=== PATIENT | male | born 1940 | race Caucasian/White ===

== ENCOUNTER 2019-03-18 11:05 | Day surgery (SDC) | payer MEDICARE ==
[~2019-03-18 11:05] MED LIST: Dexamethasone 20 MG/5 ML VIAL ONE; Ondansetron PF 4 MG/2 ML Vial ONE; PROPOFOL 200 MG/20 ML VIAL ONE; Succinylcholine Chloride 20 MG/ML 10 ml SYRINGE FS ONE
--- NOTE | 2019-03-19 13:25 | OP ---
DATE OF PROCEDURE: 03/18/2019 PREPROCEDURE DIAGNOSES: Dysphagia and bolus obstruction. The patient came to the office this morning, was seen by one of the providers there, and sent over today's day for endoscopy. POSTPROCEDURE DIAGNOSES: 1. Hiatal hernia sliding type. 2. Stricture/Schatzki ring, dilated to 18 mm. 3. Duodenitis with gastritis, biopsied. 4. Food bolus had migrated to the stomach at the time of endoscopy, and there was quite a bit of inflammation at the GE junction, but not so much to preclude dilatation. The food bolus was noted in the stomach. PROCEDURE PERFORMED: EGD with biopsy and EGD with dilatation to 18 mm. PROCEDURE IN DETAIL: The patient was informed of the risks, benefits, and possible complications of endoscopy including perforation, reaction to medication, aspiration. Informed consent was obtained. The patient was brought to the endoscopy suite where he was sedated in a standard fashion. Once he was comfortable, bite-block was placed inside the orifice. The endoscope was advanced to the esophagus, stomach, and 2nd and 3rd portions of the duodenum and was removed. There was good visualization of mucosa. There were no masses, lesions, or AV malformations noted. The hiatal hernia was noted in the distal esophagus. There was esophagitis with a stricture and there was food bolus in the stomach which seemed to have migrated through. Once we gotten sedated, this area was dilated because of his history of intermittent dysphagia and food bolus obstruction in the past. Gastric biopsies were obtained. The duodenum was normal. The stomach was otherwise normal on forward and retroflexed views. The scope was removed. The patient tolerated the procedure well. There were no complications. RECOMMENDATIONS: Daily PPI therapy. Follow up in the office in 3 weeks. Job ID: [id number]
== END 2019-03-18 15:37 | disposition home or self-care (01) ==
LOC: SDC 11:05
PROVIDERS: ATTEND Internal Medicine Gastroenterology
PROC: 0DB78ZX Excision of Stomach, Pylorus, Via Natural or Artificial Opening Endoscopic, Diagnostic (ICD-10-PCS; principal; 2019-03-18)
PROC: 0D758ZZ Dilation of Esophagus, Via Natural or Artificial Opening Endoscopic (ICD-10-PCS; 2019-03-18)
DX: K22.2 Esophageal obstruction (principal); K31.89 Other diseases of stomach and duodenum; K29.80 Duodenitis without bleeding; K20.9 Esophagitis, unspecified; K44.9 Diaphragmatic hernia without obstruction or gangrene; F17.200 Nicotine dependence, unspecified, uncomplicated; Z79.899 Other long term (current) drug therapy
CPT/HCPCS: 88305; 88312; J1100; J2405; J2704

== ENCOUNTER 2020-04-12 15:50 | Inpatient (IN) | payer MEDICARE ==
[~2020-04-12 15:50] MED LIST changes: +Glycopyrrolate 0.2 MG/ML 5 ML SYRINGE ONE; +Ketorolac Tromethamine 30 MG/ML VIAL ONE; +PHENYLEPHRINE-NS 100 MCG/ML 10 ML SYRINGE ONE; +Rocuronium Bromide 10 MG/ML (10ML VIAL) ONE; -Succinylcholine Chloride 20 MG/ML 10 ml SYRINGE FS ONE
[2020-04-12] MEDS ORDERED: Ondansetron PF 4 MG/2 ML Vial ONE (16:10)
[2020-04-12] MEDS ORDERED: Morphine 4 MG/ML VIAL ONE ×3 (16:10→16:49)
--- NOTE | 2020-04-12 16:57 | RAD ---
PORTABLE CHEST: History: Patient slipped and fell in parking lot. FINDINGS: Heart size is within normal limits. The aorta is mildly tortuous. The lungs are clear of any infiltra katt. No rib fractures. Some minimal blunting to the left costophrenic angle could represent a small e ffusions versus some pleural thickening. IMPRESSION: Blunting to the left costophrenic angle. I suspect this is chronic in nature. Fairly similar in app danny to a 2012 study. No active intrathoracic disease. POS: LIGIA
--- NOTE | 2020-04-12 17:01 | RAD ---
LEFT HIP TWO VIEWS: History: Patient slipped and fell in parking lot. FINDINGS: An intertrochanteric fracture with marked coxa vara deformity is noted. No other findings. IMPRESSION: Intertrochanteric fracture of the left hip. POS: LIGIA
--- NOTE | 2020-04-12 17:02 | RAD ---
AP PELVIS: History: Patient slipped and fell with left hip pain. FINDINGS: Pelvic ring is intact without evidence of fracture. Sclerotic bony changes over the right femoral hea d are incidentally noted. An intertrochanteric fracture of the left hip is present. IMPRESSION: Intertrochanteric fracture of the left hip. POS: LIGIA
[2020-04-12 17:14] LABS: #Basophils 0.1 thou/uL (0.0-0.2); #Eosinphils 0.1 thou/uL (0.0-0.7); #Lymphocytes 1.2 thou/uL (1.20-3.40); #Monocytes 0.7 thou/uL (0.11-0.59); #Neutrophils 4.7 thou/uL (1.40-6.50); %Basophils 0.8 % (0.0-1.0); %Eosinophils 1.4 % (0.0-10.0); %Lymphocytes 17.5 % (21.0-51.0); %Monocytes 10.5 % (0.0-10.0); %Neutrophils 69.8 % (42.0-75.0); Hemoglobin 15.7 g/dL (14.0-18.0); Mean Corpuscular HGB CONC 33.3 g/dL (32.0-36.0); Mean Corpuscular Hemoglobin 34.7 pg (27.0-31.0); Mean Platelet Volume 6.6 fL (7.4-10.4); Platelet Count 218 thou/uL (130-400); Red Blood Cell (RBC) Count 4.52 mill/uL (4.70-6.10); White Blood Cell (WBC) Count 6.7 thou/uL (4.8-10.8)
[2020-04-12 17:20] LABS: PTT 26.3 sec (22.9-36.1); Prothrombin Time 13.3 sec (12.0-14.7)
[2020-04-12 17:36] LABS: ALT (SGPT) 11 U/L (8-55); AST (SGOT) 15 U/L (5-34); Albumin 3.6 g/dL (3.4-4.8); Alkaline Phosphatase 84 U/L (40-110); Anion Gap 15 mmol/L (10-20); BUN (Urea Nitrogen) 11 mg/dL (8.4-25.7); Bilirubin, Total 0.6 mg/dL (0.2-1.2); Calc. Creatinine Clearance 0 mL/min (70-130); Calcium 8.5 mg/dL (7.8-10.44); Carbon Dioxide 25 mmol/L (23-31); Chloride 105 mmol/L (98-107); Globulin 3.4 g/dL (2.4-3.5); Glucose 96 mg/dL (83-110); Potassium 4.8 mmol/L (3.5-5.1); Sodium 140 mmol/L (136-145)
--- NOTE | 2020-04-12 17:49 | HP ---
REQUESTING PHYSICIAN: Dr. Glass. ATTENDING SURGEON: Dr. Obrien. CONSULTATIONS: Orthopedics, Dr. Page. HISTORY OF PRESENT ILLNESS: The patient is a 80-year-old man who was brought to the emergency department by [facility] after having a ground level ground level fall in a store. He felt that his hip dislocated when in fact he had suffered a displaced femoral neck fracture which time we were asked to evaluate the patient for admission and obtain Orthopedic consultation. This was a witnessed fall and the patient did not hit his head or have altered level of consciousness. The patient denied any syncopal type symptoms only that he lost his footing and slipped. The patient's spouse is at bedside. She confirms this. The patient denies blood thinners. He has been n.p.o. since this morning and we have contacted Orthopedics and they plan to take him to the operating room today. ALLERGIES: NONE. CURRENT MEDICATIONS: Trazodone. PAST MEDICAL HISTORY: Multiple skin cancers. PAST SURGICAL HISTORY: Cholecystectomy, ventral hernia repair. SOCIAL HISTORY: The patient lives at home with family. He drinks daily. Smokes at least one pack of cigarettes per day. Denies drug use. REVIEW OF SYSTEMS: A 10-point review of systems is negative as otherwise stated. PHYSICAL EXAMINATION: VITAL SIGNS: Blood pressure 130/79, heart rate 77, respirations 20, oxygen saturation 99% on room air, temperature is 97.8. GENERAL: The patient is resting comfortably in bed. He is awake, alert, conversant, appropriate. Cami Coma Scale is 15. HEENT: Head is normocephalic and atraumatic. Eyes, extraocular movements intact. PERRLA bilaterally. Ears are atraumatic without discharge. Nose is atraumatic without discharge. Oropharynx is clear. NECK: Nontender. Trachea is midline with no JVD. CHEST: Clear to auscultation with scant wheezings and occasional rhonchi. ABDOMEN: Soft, flat, nontender with active bowel sounds. PELVIS: Stable with tenderness to palpation to the left hip consistent with his fracture. The left lower extremity is held slightly flexed and internally rotated. EXTREMITIES: Neurovascularly intact x4. BACK: By report is atraumatic and nontender. LABORATORY FINDINGS: White blood cell count 6.7, hemoglobin 15.7, hematocrit 47.1, platelets 218. INR 1.0. Chemistries are pending. RADIOGRAPHIC REPORTS: AP chest x-ray shows no active intrathoracic disease. AP pelvis shows intertrochanteric fracture of the left hip. Views of the left hip again demonstrated an intertrochanteric fracture of the left hip. ASSESSMENT: 1. Status post ground level fall. 2. Left intertrochanteric femur fracture. 3. Acute pain secondary to above. PLAN: Plan will be to admit the patient to the surgical floor, though he is likely to go to the preop holding area once his COVID test comes back. We will do pulmonary toilet, gastritis and mechanical VTE prophylaxis. Postoperatively, we will begin working with Physical and Occupational Therapy and discuss placement at that time. The evaluation, examination, laboratory, and radiographic findings will be discussed with Dr. Obrien following this dictation and Dr. Page has been aware of this patient and has scheduled the patient for surgery today. Job ID: [id number]
[2020-04-12] MEDS ORDERED: Ondansetron HCl/PF 4 MG/2 ML Vial IVP PRN ×2 (17:55→20:03)
[2020-04-12] MEDS ORDERED: Promethazine HCl 25 MG/ML VIAL IM PRN (17:55)
[2020-04-12] MEDS ORDERED: Meperidine HCl/PF 25 MG/ML VIAL SLOW IVP PRN (17:55)
[2020-04-12] MEDS ORDERED: Promethazine HCl 25 MG/ML VIAL SLOW IVP PRN (17:55)
[2020-04-12] MEDS ORDERED: Fentanyl 100 MCG/2 ML VIAL ONE ×3 (18:13→20:39)
[2020-04-12 18:27] LABS: SARS-CoV-2 NAA Rapid Test Not Detected (NotDetected)
--- NOTE | 2020-04-12 20:32 | CON ---
DATE OF CONSULTATION: 04/12/2020 CHIEF COMPLAINT: Left hip pain. HISTORY OF PRESENT ILLNESS: Mr. Hill is a 80-year-old male who was at [facility] when he slipped in the snow. He fell on the concrete. He fractured his left hip. He was unable to ambulate. EMS took him to the emergency department where he was found to have a displaced intertrochanteric femur fracture. He has been given pain medication. He is alert. His pain is controlled currently. He has been n.p.o. since early this morning. He has been in good condition lately with no recent illness. He has not been in the hospital recently. He ambulates with no assistance at baseline. PAST MEDICAL HISTORY: The patient denies active medical problems. PAST SURGICAL HISTORY: Cholecystectomy, hernia repair, left elbow surgery, and skin cancer removal. PSYCHIATRIC HISTORY: Negative. SOCIAL HISTORY: The patient drinks alcohol daily. Denies tobacco or drug use. ALLERGIES: NO KNOWN DRUG ALLERGIES. MEDICATIONS: Trazodone. FAMILY MEDICAL HISTORY: Noncontributory. REVIEW OF SYSTEMS: Positive for left hip pain with any movement. Otherwise, negative 10-point review of systems. IMAGES: X-rays of the left hip demonstrated displaced intertrochanteric femur fracture with shortening and varus alignment. PHYSICAL EXAMINATION: VITAL SIGNS: Stable. The patient is afebrile, 98% on room air. HEENT: Normocephalic, atraumatic. RESPIRATORY: Breathing comfortably. ABDOMEN: Soft, nontender, nondistended. MUSCULOSKELETAL: The patient's left lower extremity is shortened and internally rotated. He has deformity of the leg and swelling. He has a palpable dorsalis pedis pulse. He is able to flex and extend the toes and ankle. Upper extremities are atraumatic. IMPRESSION: Left intertrochanteric femur fracture in a 80-year-old male. PLAN: At this point, I think the patient would benefit from operative intervention. We will plan for intramedullary nail fixation of the left proximal femur to restore anatomical alignment and promote early mobilization. Goal of surgery will also be to provide pain control. The patient will go to the operating room [facility]. He has a rapid COVID test pending. He has had appropriate labs and workup. He will have antibiotics on-call to the operating room and DVT prophylaxis. Job ID: [id number]
--- NOTE | 2020-04-12 20:34 | OP ---
DATE OF PROCEDURE: 04/12/2020 PROCEDURE PERFORMED: Left femur intramedullary nail. PREOPERATIVE DIAGNOSIS: Left femur intertrochanteric fracture. POSTOPERATIVE DIAGNOSIS: Left femur intertrochanteric fracture. COMPLICATIONS: None. ESTIMATED BLOOD LOSS: 100 mL. IMPLANTS: Synthes short trochanteric nail, size 11 mm with helical blade. INDICATIONS: Mr. Hill is a 80-year-old male who has fallen and fractured his left proximal femur. He has been indicated for intramedullary nail fixation to restore anatomic alignment and promote healing. Risks have been reviewed in detail. He elected to proceed with the operation. DESCRIPTION OF PROCEDURE: Mr. Hill was identified in the preoperative holding area. His correct extremity was marked. He was carried to the operating room. He was positioned supine. General anesthesia was induced. A multidisciplinary time-out was performed. The left lower extremity was prepped and draped in sterile fashion. We began the procedure with evaluation of the left hip under intraoperative x-ray. We identified the fracture and reduced the fracture. Once we had an anatomic reduction, we made a small incision proximal to the greater trochanter. We dissected down through the subcutaneous tissues to the tip of the trochanter. We inserted a guidewire. At this point, we proceeded to pass the guidewire from proximal to distal. We overdrilled the guidewire. We then inserted our 11 mm short trochanteric nail. This was seated in the femur. We placed a second guidewire in the centered position of the femoral head using the guide. We overdrilled this. We then impacted our helical blade and seated this appropriately. It was locked in a dynamic position. Next, we placed our distal Crosslock screw through the appropriate instrumentation. The final x-rays were taken. We thoroughly irrigated all wounds and closed wounds in layers. A sterile dressing was applied. The patient was taken to the recovery room at this point in good condition. Job ID: [id number]
--- NOTE | 2020-04-12 20:41 | RAD ---
RADIOGRAPH LEFT HIP THREE VIEWS: DATE: 04-12-2020 TIME: 7:48 p.m. History: 80-year-old male with acute, traumatic left proximal femoral fracture. Comparison: 04-12-2020 4:26 p.m. FINDINGS: The sharp varus angulation of the intertrochanteric and/or basicervical fracture, has been reduced an d is now fixated with a gamma nail. Femoral stem reaches the proximal femoral shaft. Single distal st abilization screw at the proximal femoral shaft. Significant improvement in alignment. IMPRESSION: Status post gamma nail fixation of basicervical or intertrochanteric left proximal femoral fracture. POS: JIN
[2020-04-12] MEDS ORDERED: hydrALAZINE 20 MG/ML VIAL SLOW IVP PRN (21:15)
[2020-04-12] MEDS ORDERED: Morphine 2 MG/ML VIAL SLOW IVP PRN (21:15)
[2020-04-12] MEDS ORDERED: Ondansetron ODT 4 MG TAB PO PRN (21:15)
[2020-04-12] MEDS ORDERED: Dextrose 5% in Water 1,000 ML IV PRN (21:15)
[2020-04-12] MEDS ORDERED: Dextrose 50% Abboject 50 ML SYRINGE SLOW IVP PRN (21:15)
[2020-04-12] MEDS ORDERED: Ondansetron PF 4 MG/2 ML Vial IVP PRN (21:15)
[2020-04-12] MEDS: Acetaminophen 325 MG TAB PO SCH (22:08)
[2020-04-12] MEDS: Ibuprofen 600 MG TAB PO SCH (22:09)
[2020-04-12] MEDS: Sodium Chloride 0.9% 1,000 ML IV SCH (22:09)
[2020-04-12] MEDS: Famotidine 20 MG TAB PO SCH (22:09)
[2020-04-12 22:20] VITALS: BMI 23.6
[2020-04-13] MEDS: CEFAZOLIN 2 GM in Premix Bag 1 BAG IVPB SCH ×2 (01:10→09:01)
[2020-04-13] MEDS: traMADol HCl 50 MG TAB PO PRN ×2 (05:00→23:45)
[2020-04-13] MEDS: Acetaminophen 325 MG TAB PO SCH ×4 (05:00→23:44)
[2020-04-13] MEDS: Ibuprofen 600 MG TAB PO SCH ×3 (05:01→20:50)
[2020-04-13 05:35] LABS: #Lymphocytes 0.7 thou/uL (1.20-3.40); #Monocytes 0.7 thou/uL (0.11-0.59); #Neutrophils 7.4 thou/uL (1.40-6.50); %Basophils 0.1 % (0.0-1.0); %Eosinophils 0.1 % (0.0-10.0); %Lymphocytes 8.2 % (21.0-51.0); %Monocytes 8.3 % (0.0-10.0); %Neutrophils 83.3 % (42.0-75.0); Hemoglobin 13.1 g/dL (14.0-18.0); Mean Corpuscular HGB CONC 33.5 g/dL (32.0-36.0); Mean Platelet Volume 6.9 fL (7.4-10.4); Platelet Count 241 thou/uL (130-400); RBC Distribution Width 12.7 % (11.5-14.5); Red Blood Cell (RBC) Count 3.75 mill/uL (4.70-6.10); White Blood Cell (WBC) Count 8.9 thou/uL (4.8-10.8)
[2020-04-13 05:46] LABS: Anion Gap 12 mmol/L (10-20); BUN (Urea Nitrogen) 12 mg/dL (8.4-25.7); Calc. Creatinine Clearance 62 mL/min (70-130); Calcium 8.2 mg/dL (7.8-10.44); Carbon Dioxide 28 mmol/L (23-31); Chloride 102 mmol/L (98-107); Glucose 132 mg/dL (83-110); Potassium 5.5 mmol/L (3.5-5.1); Sodium 136 mmol/L (136-145)
[2020-04-13] MEDS: Sodium Chloride 0.9% 1,000 ML IV SCH (06:21)
[2020-04-13] MEDS: Famotidine 20 MG TAB PO SCH ×2 (07:57→20:50)
[2020-04-13] MEDS: Thiamine 100 MG TAB PO SCH (09:38)
[2020-04-13] MEDS: Multivit, Therapeutic 1 TAB PO SCH (09:38)
[2020-04-13] MEDS: Folic Acid 1 MG TAB PO SCH (09:38)
[2020-04-13] MEDS: Oxazepam 10 MG CAP PO SCH ×2 (10:45→17:19)
--- NOTE | 2020-04-13 13:53 | PRG ---
DATE OF SERVICE: 04/13/2020 SUBJECTIVE: The patient is hospital day #1, status post left femur ORIF due to femoral neck fracture sustained after a ground level fall. The patient states he is doing well. Pain is controlled. He was sitting up in bed, eating his breakfast when seen on rounds with Dr. Austin this morning. PHYSICAL EXAMINATION: VITAL SIGNS: Blood pressure 90/55, heart rate is 85, respiratory rate 18, oxygen saturation 93% on room air, temperature 98.1 Fahrenheit. GENERAL: The patient is resting comfortably in bed. Eating breakfast. No complaints at this time. GCS is 15. HEENT: Unremarkable. RESPIRATIONS: Nonlabored. ABDOMEN: Nondistended. LUNGS: Mild end-expiratory wheezing bilaterally. EXTREMITIES: Neurovascularly intact x4. LABORATORY DATA: Sodium 136, potassium 5.5. ASSESSMENT: 1. Status post ground level fall. 2. Left intertrochanteric femur fracture, one day status post open reduction and internal fixation. 3. Alcohol use disorder. PLAN: Continue to monitor patient's pain level to achieve adequate pain control so that the patient may be able to work with PT/OT. Pending post-acute screen for placement. Stopped IV fluids today. The patient is tolerating a diet well. Added Serax today due to patient's history of alcohol use daily. Encouraged patient to continue using incentive spirometer. Job ID: [id number] [facility]
[2020-04-13] MEDS: Senokot S 8.6-50 MG TAB PO SCH (20:50)
[2020-04-13] MEDS ORDERED: FLU VACC QS2020-21(65YR UP)/PF 240 MCG/0.7 ML SYRINGE IM ONE (21:00)
[2020-04-14] MEDS: Oxazepam 10 MG CAP PO SCH ×3 (02:42→18:13)
[2020-04-14] MEDS: Acetaminophen 325 MG TAB PO SCH ×4 (06:32→23:07)
[2020-04-14] MEDS: Ibuprofen 600 MG TAB PO SCH ×3 (06:33→20:57)
[2020-04-14] MEDS: traMADol HCl 50 MG TAB PO PRN (07:02)
--- NOTE | 2020-04-14 07:59 | PRG ---
DATE OF SERVICE: 04/13/2020 SUBJECTIVE: Leonard is a 80-year-old male, postop day #1 from an intertrochanteric nail fixation for a left hip intertrochanteric fracture. He is doing relatively well. He is sitting up and having coffee this morning. He has no complaints. He is quite comfortable. OBJECTIVE: VITAL SIGNS: Stable. GENERAL: He is afebrile, conversive, appropriate, pleasant. MUSCULOSKELETAL: Incisions are clean. No malrotation or shortening. NEUROVASCULAR: He is neurovascularly intact in the left lower extremity. LABORATORY DATA: Hemoglobin and hematocrit 13.1 and 39.2. IMPRESSION: A 80-year-old male postoperative day #1 left hip intertrochanteric fracture treated with short trochanteric nail fixation. PLAN: Continue current care. Regular diet. Recheck tomorrow. Placement versus home discharge. DISPOSITION: Per Trauma Team. Job ID: [id number]
[2020-04-14] MEDS: Polyethylene Glycol 3350 17 GM Packet PO SCH (08:32)
[2020-04-14] MEDS: Senokot S 8.6-50 MG TAB PO SCH ×2 (08:32→20:53)
[2020-04-14] MEDS: Famotidine 20 MG TAB PO SCH (08:33)
[2020-04-14] MEDS: Thiamine 100 MG TAB PO SCH (08:34)
[2020-04-14] MEDS: Multivit, Therapeutic 1 TAB PO SCH (08:34)
[2020-04-14] MEDS: Folic Acid 1 MG TAB PO SCH (08:34)
[2020-04-14] MEDS: Enoxaparin Sodium 40 MG/0.4 ML SYRINGE SC SCH (09:54)
[2020-04-14] MEDS: Cyclobenzaprine 10 MG TAB PO PRN (23:07)
[2020-04-15] MEDS: Oxazepam 10 MG CAP PO SCH ×3 (00:45→17:35)
--- NOTE | 2020-04-15 00:56 | PRG ---
DATE OF SERVICE: 04/14/2020 SUBJECTIVE: The patient is seen this evening during rounds. He was lying in bed, resting comfortably and asleep with no signs of acute distress. Nursing reported no acute events. OBJECTIVE: VITAL SIGNS: Temperature 97.5, pulse 93, respirations 20, oxygen saturation 96% on room air, blood pressure 117/77. ASSESSMENT: 1. Status post ground level fall. 2. Left femur fracture, status post repair. 3. History of alcohol abuse and skin cancer. PLAN: Continue current diet and pain regimen. Continue physical and occupational therapy. Continue supportive care. The patient will likely be discharged home with home health tomorrow. Job ID: [id number]
--- NOTE | 2020-04-15 05:33 | PRG ---
DATE OF SERVICE: 04/14/2020 SUBJECTIVE: The patient is a 80-year-old male, postop day 2 from intertrochanteric nail fixation for left hip intertrochanteric fracture following a ground level fall. The patient is doing well. Working with physical therapy. Sitting up and eating breakfast this morning with no complaints. OBJECTIVE: VITAL SIGNS: Blood pressure 118/56, pulse 85, temperature 98.6, respiratory rate 18, O2 saturation 93% on room air. GENERAL: The patient is sitting up, resting comfortably in bed. No complaints at this time. GCS is 15. HEENT: Unremarkable. RESPIRATIONS: Nonlabored, equal chest rise. ABDOMEN: Soft, nondistended. EXTREMITIES: Neurovascularly intact x4. LABORATORY DATA: No new labs today. ASSESSMENT: 1. Status post ground level fall. 2. Day 2 status post open reduction and internal fixation of the left intertrochanteric femur fracture. 3. Alcohol use disorder. PLAN: The patient was admitted to telemetry unit following surgery due to a pause on telemetry noted while in surgery. Since then, all telemetry monitoring has been normal other than a short period, in which he had sinus bradycardia to a rate of 50. We will transfer him to surgical floor today. Continue to provide supportive treatment including oxazepam for alcohol withdrawal. The patient is working well with PT, will continue. Case Management is working on placement. The patient has [facility], which family preservation caseworker explained to family that inpatient rehab was not likely to be approved. The patient's family stated they would like to try that as a first option with [facility] as second choice. This patient was seen on rounds this morning with Dr. Obrien. Job ID: [id number] [facility]
[2020-04-15] MEDS: Ibuprofen 600 MG TAB PO SCH ×3 (05:42→21:17)
[2020-04-15] MEDS: Acetaminophen 325 MG TAB PO SCH ×2 (05:42→11:31)
[2020-04-15 06:05] LABS: #Eosinphils 0.1 thou/uL (0.0-0.7); #Lymphocytes 1.6 thou/uL (1.20-3.40); #Monocytes 0.8 thou/uL (0.11-0.59); #Neutrophils 3.8 thou/uL (1.40-6.50); %Basophils 0.7 % (0.0-1.0); %Eosinophils 1.8 % (0.0-10.0); %Lymphocytes 25.4 % (21.0-51.0); %Neutrophils 60.1 % (42.0-75.0); Hemoglobin 10.3 g/dL (14.0-18.0); Mean Corpuscular HGB CONC 32.1 g/dL (32.0-36.0); Mean Corpuscular Hemoglobin 33.4 pg (27.0-31.0); Mean Platelet Volume 6.3 fL (7.4-10.4); Platelet Count 227 thou/uL (130-400); Red Blood Cell (RBC) Count 3.09 mill/uL (4.70-6.10); White Blood Cell (WBC) Count 6.3 thou/uL (4.8-10.8)
[2020-04-15 06:28] LABS: Anion Gap 10 mmol/L (10-20); BUN (Urea Nitrogen) 10 mg/dL (8.4-25.7); Calc. Creatinine Clearance 82 mL/min (70-130); Calcium 8.3 mg/dL (7.8-10.44); Carbon Dioxide 30 mmol/L (23-31); Chloride 102 mmol/L (98-107); Glucose 91 mg/dL (83-110); Phosphorus 2.7 mg/dL (2.3-4.7); Potassium 3.5 mmol/L (3.5-5.1); Sodium 138 mmol/L (136-145)
[2020-04-15] MEDS: Polyethylene Glycol 3350 17 GM Packet PO SCH (08:12)
[2020-04-15] MEDS: Thiamine 100 MG TAB PO SCH (08:12)
[2020-04-15] MEDS: Folic Acid 1 MG TAB PO SCH (08:12)
[2020-04-15] MEDS: Senokot S 8.6-50 MG TAB PO SCH ×2 (08:12→21:17)
[2020-04-15] MEDS: Multivit, Therapeutic 1 TAB PO SCH (08:12)
[2020-04-15] MEDS: traMADol HCl 50 MG TAB PO PRN (08:13)
[2020-04-15] MEDS: Enoxaparin Sodium 40 MG/0.4 ML SYRINGE SC SCH (08:14)
[2020-04-15] MEDS: Cyclobenzaprine 10 MG TAB PO PRN (11:32)
[2020-04-15] MEDS ORDERED: traMADol HCl 50 MG TAB PO SCH (12:00)
--- NOTE | 2020-04-15 12:37 | PRG ---
DATE OF SERVICE: 04/15/2020 SUBJECTIVE: Leonard is a 80-year-old male postop day 2 for left hip intertrochanteric fracture treated with short transfemoral nail fixation. He still complains of pain in the left hip and I believe this is slowing his therapy down. OBJECTIVE: VITAL SIGNS: Temperature 99.8, pulse 94, respiratory rate 18, blood pressure 161/72. GENERAL: He is alert, responsive, conversive. Complains of pain. Incision is clean. Garrison are intact. No strike through. No erythema. No malrotation or shortening. IMPRESSION: This is a 80-year-old male postop day 2, left hip intertrochanteric fracture, treated with short nail fixation. PLAN: Continue current care. Recheck tomorrow. DISPOSITION: Per Trauma Team. Job ID: [id number]
[2020-04-15] MEDS ORDERED: Gabapentin 100 MG CAP PO SCH (15:00)
--- NOTE | 2020-04-15 16:57 | PRG ---
DATE OF SERVICE: 04/15/2020 SUBJECTIVE: The patient was seen during morning rounds, sitting up in hospital bed, in no distress. The patient is postop day #3, status post left femur intramedullary nail fixation. The patient had no overnight events. The patient continues to have some left hip pain, worse with working with PT. The patient is tolerating a regular diet. The patient has not had a bowel movement since admission. The patient was attempted to be placed at inpatient rehab, but unfortunately yesterday, his insurance denied him due to the his progression and he has been able to ambulate with standby assist only. OBJECTIVE: VITAL SIGNS: Temperature 99.8, pulse 97, respirations 18, SpO2 of 93% on room air, and blood pressure 161/72. GENERAL: Elderly male, awake, alert, in no distress, sitting up in bed. HEENT: Unremarkable. RESPIRATORY: Good inspiratory and expiratory effort, respirations are even and nonlabored. CARDIAC: Regular rate, regular rhythm. ABDOMEN: Soft, nondistended. EXTREMITIES: Moves all extremities, neurovascularly intact x4. LABORATORY DATA: WBC 6.3, RBC 3.09, hemoglobin 10.3, hematocrit 32.2, and platelets 227. Sodium 138, potassium 3.5, BUN 10, creatinine 0.80, estimated GFR greater than 90, glucose 91, phosphorus 2.7, and magnesium 2.0. DIAGNOSTICS: No new diagnostics to review today. ASSESSMENT: 1. Status post ground level fall. 2. Postop day #3, open reduction and internal fixation of left intertrochanteric femur fracture. 3. History of alcohol use disorder. PLAN: Continue supportive care. We will increase bowel regimen as the patient has not had a bowel movement. We will schedule the patient's tramadol 100 mg and add gabapentin as the patient has been having some increased pain with physical and occupational therapy. Once the patient's pain is controlled, he will likely be discharged home with home health, PT/OT. The patient's is doing an appeal with her insurance for denying inpatient rehab. Job ID: [id number]
[2020-04-15] MEDS: Acetaminophen 500 MG TAB PO SCH ×2 (17:36→23:46)
[2020-04-15] MEDS: traMADol HCl 50 MG TAB PO SCH ×2 (17:36→23:46)
[2020-04-15] MEDS: Gabapentin 300 MG CAP PO SCH (21:17)
--- NOTE | 2020-04-16 00:39 | PRG ---
DATE OF SERVICE: 04/15/2020 SUBJECTIVE: The patient was seen this evening during rounds. He was lying in bed on his right side, resting comfortably and asleep with no signs of acute distress. Nursing reported no acute events. OBJECTIVE: VITAL SIGNS: Temperature 97.7, pulse 86, respirations 20, oxygen saturation 94% on room air, blood pressure 90/67. ASSESSMENT: 1. Status post ground level fall. 2. Left femur fracture, status post repair. 3. History of alcohol abuse and skin cancer. PLAN: Continue current diet and pain regimen. Continue physical and occupational therapy. Continue supportive care. The patient is pending discharge home tomorrow with home health. He is ready for discharge at this time. Job ID: [id number]
[2020-04-16] MEDS: Oxazepam 10 MG CAP PO SCH ×2 (01:32→08:42)
[2020-04-16] MEDS: traMADol HCl 50 MG TAB PO SCH ×2 (05:04→11:01)
[2020-04-16] MEDS: Ibuprofen 600 MG TAB PO SCH ×2 (05:05→14:38)
[2020-04-16] MEDS: Acetaminophen 500 MG TAB PO SCH ×2 (05:05→11:00)
[2020-04-16 06:10] LABS: #Eosinphils 0.2 thou/uL (0.0-0.7); #Lymphocytes 1.7 thou/uL (1.20-3.40); #Monocytes 0.7 thou/uL (0.11-0.59); %Basophils 0.8 % (0.0-1.0); %Eosinophils 3.2 % (0.0-10.0); %Lymphocytes 30.7 % (21.0-51.0); %Monocytes 12.3 % (0.0-10.0); %Neutrophils 52.9 % (42.0-75.0); Hemoglobin 10.7 g/dL (14.0-18.0); Mean Corpuscular HGB CONC 33.9 g/dL (32.0-36.0); Mean Corpuscular Hemoglobin 35.4 pg (27.0-31.0); Mean Platelet Volume 6.4 fL (7.4-10.4); Platelet Count 237 thou/uL (130-400); Red Blood Cell (RBC) Count 3.02 mill/uL (4.70-6.10); White Blood Cell (WBC) Count 5.7 thou/uL (4.8-10.8)
[2020-04-16] MEDS: Multivit, Therapeutic 1 TAB PO SCH (08:17)
[2020-04-16] MEDS: Thiamine 100 MG TAB PO SCH (08:17)
[2020-04-16] MEDS: Folic Acid 1 MG TAB PO SCH (08:17)
[2020-04-16] MEDS: Gabapentin 300 MG CAP PO SCH ×2 (08:40→14:38)
[2020-04-16] MEDS: Enoxaparin Sodium 40 MG/0.4 ML SYRINGE SC SCH (08:41)
[2020-04-16] MEDS: Cyclobenzaprine 10 MG TAB PO PRN (08:41)
[2020-04-16] MEDS: Polyethylene Glycol 3350 17 GM Packet PO SCH (08:41)
[2020-04-16] MEDS: Senokot S 8.6-50 MG TAB PO SCH (08:41)
--- NOTE | 2020-04-16 08:44 | PRG ---
DATE OF SERVICE: 04/16/2020 SUBJECTIVE: Leonard is a 80-year-old male, postop day 3 from a left hip intertrochanteric fracture treated with short trochanteric nail fixation. He is doing very well. He has no complaints. He is feeling better today and yesterday, his pain is improved. OBJECTIVE: VITAL SIGNS: Temperature 97.6, pulse 75, respiratory rate 20, and blood pressure is 120/81. GENERAL: He is alert and oriented to person, place, time, situation, responsive, and appropriate with examiner. Incisions are clean, dressings are taken down. No strike through. No erythema. Naif are intact. LABORATORY DATA: Hemoglobin and hematocrit of 10.7 and 31.6 as of today. IMPRESSION: 1. A 80-year-old male, postop day 3 left hip intertrochanteric fracture treated with nail fixation. 2. Asymptomatic anemia. PLAN: Disposition per Trauma Team. Continue to observe. Follow for pain and continue physical therapy. Job ID: [id number]
[2020-04-16 12:44] VITALS: BP 105/61; TEMP 97.4
--- NOTE | 2020-04-17 13:41 | DIS ---
DATE OF ADMISSION: 04/12/2020 DATE OF DISCHARGE: 04/16/2020 CONSULTS: Orthopedic Surgery, Dr. Page. PROCEDURES: On 04/12/2020, left femoral intramedullary nail stabilization for a left intertrochanteric femur fracture. PRIMARY DIAGNOSIS: Ground-level fall, left intertrochanteric femur fracture. SECONDARY DIAGNOSIS: Multiple skin cancers. DISCHARGE MEDICATIONS: 1. Gabapentin 300 mg p.o. three times a day, #60, no refills. 2. Acetaminophen 650 mg p.o. q.6 hours. 3. Ibuprofen 600 mg p.o. q.8 hours p.r.n. 4. MiraLAX as needed for constipation. 5. Senokot as needed for constipation. 6. Trazodone 50 mg p.o. daily. 7. Tramadol 50 mg p.o. q.6 hours p.r.n. pain, #60, no refills. No discontinued medications. HISTORY OF PRESENT ILLNESS AND HOSPITAL COURSE: This is a 80-year-old gentleman who had a ground-level fall. The patient did not hit his head or lose consciousness. The patient denied any syncopal symptoms prior to falling and states he just lost his footing and slipped. The patient denied being on any blood thinners. The patient did have some postop pain in which his medications needed to be adjusted. The patient was able to walk with physical therapy. The patient was denied rehab by his insurance. The patient eventually improved and was safe for discharge home with home health, PT/OT, and correction. On the day of discharge, patient's exam was unremarkable. The patient's vital signs were stable. The patient was deemed stable for discharge home with home health. DISPOSITION: Stable. DISCHARGE INSTRUCTIONS: Home with home health. DIET: Regular diet as tolerated. ACTIVITY: 1. Orthopedic limitations, weightbearing as tolerated. 2. Followup: Follow up with Dr. Page in 14 days. No need to follow up with Trauma Services. 3. The [employer] Prescription Monitoring Program was accessed and appropriate. This is just a summary of the hospital visit, please see the entire medical record for details. Job ID: [id number]
--- NOTE | 2020-04-18 14:01 | EKG ---
Test Reason : PREOP Blood Pressure : / mmHG Vent. Rate : 090 BPM Atrial Rate : 090 BPM P-R Int : 194 ms QRS Dur : 076 ms QT Int : 380 ms P-R-T Axes : 075 081 075 degrees QTc Int : 464 ms Normal sinus rhythm Normal ECG Confirmed by RUBA STERN DO ([id number]), manuscript editor MARIANA YOUSSEF ([id number]) on 04/18/2020 2:00:26 PM Referred By: LEENA Confirmed By:RUBA STERN DO
== END 2020-04-16 14:57 | disposition home health service (06) | DRG 482 ==
LOC: ERS 15:50 → SDC 17:55 → 2NO 20:06 → SURG B 04-14 16:19
PROVIDERS: ADMIT Surgery; ATTEND Surgery
PROC: 0QH736Z Insertion of Intramedullary Internal Fixation Device into Left Upper Femur, Percutaneous Approach (ICD-10-PCS; principal; 2020-04-12)
DX: S72.142A Displaced intertrochanteric fracture of left femur, initial encounter for closed fracture (principal); W18.30XA Fall on same level, unspecified, initial encounter; Z20.822 Contact with and (suspected) exposure to COVID-19; F17.210 Nicotine dependence, cigarettes, uncomplicated; F10.10 Alcohol abuse, uncomplicated; Z79.899 Other long term (current) drug therapy; Z90.49 Acquired absence of other specified parts of digestive tract; Z85.828 Personal history of other malignant neoplasm of skin; D64.9 Anemia, unspecified
CPT/HCPCS: 36415; 71045; 72170; 76000; 80048; 80053; 83735; 84100; 85025; 85610; 85730; 86850; 86900; 86901; 93005; 94640; 96374; 96375; 96376; C1713; G0390; J0690; J1100; J1650; J1885; J2270; J2405; J2704; J3010; J7620; P9045; U0002

== ENCOUNTER 2020-12-15 13:34 | Outpatient (CLI) | payer MEDICARE | END 2020-12-15 13:35 | disposition home or self-care (01) | LOC: BICCT 13:34 | PROVIDERS: ATTEND Orthopaedic Surgery | DX: S72.142A Displaced intertrochanteric fracture of left femur, initial encounter for closed fracture (principal) ==

== ENCOUNTER 2023-01-10 08:55 | Outpatient (CLI) | payer MEDICARE ==
[2023-01-10] MEDS ORDERED: Iopamidol 370 76% 100 ML VIAL ONE (12:10)
== END 2023-01-10 08:56 | disposition home or self-care (01) ==
LOC: BICCT 08:55
PROVIDERS: ATTEND Urology
DX: D49.4 Neoplasm of unspecified behavior of bladder (principal); R31.0 Gross hematuria
CPT/HCPCS: 74178; Q9967

== ENCOUNTER 2023-01-13 13:16 | Outpatient (CLI) | payer MEDICARE | END 2023-01-13 13:17 | disposition home or self-care (01) | LOC: BICRAD 13:16 | PROVIDERS: ATTEND Family Medicine | DX: M25.541 Pain in joints of right hand (principal); M25.542 Pain in joints of left hand; M18.0 Bilateral primary osteoarthritis of first carpometacarpal joints | CPT/HCPCS: 36415; 81001; 83520; 84550; 86140; 86200; 87086 ==

== ENCOUNTER 2023-01-16 08:14 | Outpatient (CLI) | payer MEDICARE ==
[2023-01-16 09:34] LABS: Bilirubin Neg (Negative); Blood, Urine 250 (Negative); Clarity Cloudy (Clear); Glucose, Urine (Dipstick) Normal (Negative); Ketone, Urine Negative (Negative); Leukocyte Negative (Negative); Nitrite Negative (Negative); Protein, Urine (Dipstick) 30 mg/dl (Neg-Trace); Specific Gravity, Urine 1.015 (1.005-1.030); Urobilinogen Normal mg/dL (Less than 2)
[2023-01-16 09:35] LABS: Hematocrit 43.1 % (38.8-50.0); Hemoglobin 14.1 g/dL (13.5-17.5); Mean Corpuscular HGB CONC 32.7 g/dL (32.0-36.0); Mean Corpuscular Hemoglobin 31.7 pg (27.0-33.0); Mean Corpuscular Volume 96.9 fl (81.2-95.1); Mean Platelet Volume 8.1 fl (7.4-10.4); Platelet Count 528 10x3/uL (150-450); RBC Distribution Width 14.8 % (11.5-14.5); Red Blood Cell (RBC) Count 4.45 10x6/uL (4.32-5.72); White Blood Cell (WBC) Count 7.9 10x3/uL (3.5-10.5)
[2023-01-16 09:48] LABS: Bacteria/HPF 1+ HPF (None Seen); RBC/HPF Greater than 50 HPF (0-3); Squamous Epithelial 0-3 HPF (0-3)
[2023-01-16 10:23] LABS: PTT 27.6 sec (22.0-33.0); Prothrombin Time 10.3 sec (9.5-12.1)
[2023-01-16 10:56] LABS: Anion Gap 14 mmol/L (10-20); BUN (Urea Nitrogen) 21 mg/dL (8.4-25.7); Calc. Creatinine Clearance 0 mL/min (70-130); Carbon Dioxide 25 mmol/L (23-31); Chloride 102 mmol/L (98-107); Estimated GFR 79; Glucose 100 mg/dL (83-110); Potassium 4.3 mmol/L (3.5-5.1); Sodium 137 mmol/L (136-145)
== END 2023-01-16 08:15 | disposition home or self-care (01) ==
LOC: LABBT 08:14
PROVIDERS: ATTEND Urology
DX: Z01.818 Encounter for other preprocedural examination (principal); D49.4 Neoplasm of unspecified behavior of bladder; R31.0 Gross hematuria; J44.9 Chronic obstructive pulmonary disease, unspecified; F17.200 Nicotine dependence, unspecified, uncomplicated; R35.0 Frequency of micturition; M10.9 Gout, unspecified; N40.1 Benign prostatic hyperplasia with lower urinary tract symptoms; N20.0 Calculus of kidney; N35.811 Other urethral stricture, male, meatal; Z87.898 Personal history of other specified conditions
CPT/HCPCS: 80048; 81001; 85027; 85610; 85730; 87086; 93005; 93010

== ENCOUNTER 2023-01-25 06:23 | Observation (INO) | payer MEDICARE ==
[2023-01-16 09:23] VITALS: BMI 20.3
[2023-01-25] MEDS ORDERED: LevoFLOXacin 500 mg/D5W 100 ML BAG ONE (07:48)
[2023-01-25] MEDS ORDERED: Iopamidol 0 ML ONE (09:25)
[2023-01-25] MEDS ORDERED: SUGAMMADEX SODIUM 200 MG/2 ML VIAL ONE ×2 (09:32→11:24)
[2023-01-25] MEDS ORDERED: fentaNYL 50 mcg/mL 1 mL Vial ONE ×2 (09:32→12:10)
[2023-01-25] MEDS ORDERED: Lidocaine 1% PF 5 ML VIAL ONE (09:53)
[2023-01-25] MEDS ORDERED: PROPOFOL 200 MG/20 ML VIAL ONE (09:53)
[2023-01-25] MEDS ORDERED: Rocuronium Bromide 10 MG/ML (10ML VIAL) ONE (09:53)
[2023-01-25] MEDS ORDERED: Ondansetron PF 4 MG/2 ML Vial ONE (09:53)
[2023-01-25] MEDS ORDERED: PHENYLEPHRINE-NS 100 MCG/ML 10 ML SYRINGE ONE (09:53)
[2023-01-25] MEDS ORDERED: mitoMYcin 40 MG in Sodium Chloride 0.9% 40 ML I-VESIC SCH (11:00)
[2023-01-25] MEDS ORDERED: Bisacodyl 10 MG SUPP PR PRN (11:32)
[2023-01-25] MEDS ORDERED: HYDROcodone/Acetaminophen 5/325 mg Tablet PO PRN ×4 (11:32→16:18)
[2023-01-25] MEDS ORDERED: Morphine 2 MG/ML VIAL SLOW IVP PRN (11:32)
[2023-01-25] MEDS ORDERED: diphenhydrAMINE 50 MG/ML VIAL IVP PRN (11:32)
[2023-01-25] MEDS ORDERED: Ondansetron HCl/PF 4 MG/2 ML Vial IVP PRN (11:38)
[2023-01-25] MEDS ORDERED: Promethazine HCl 25 MG/ML VIAL IM PRN (11:38)
[2023-01-25] MEDS ORDERED: Non-Formulary Item 1 EACH (Prednisone [Prednisone] 10 MG Tablet) PO SCH (11:45)
[2023-01-25] MEDS ORDERED: Acetaminophen 500 MG TAB PO SCH ×2 (12:00→18:00)
[2023-01-25 12:08] LABS: #Monocytes 0.8 thou/uL (0.11-0.59); #Neutrophils 6.7 thou/uL (1.40-6.50); %Basophils 0.3 % (0.0-1.0); %Eosinophils 0.5 % (0.0-10.0); %Lymphocytes 13.1 % (21.0-51.0); %Monocytes 9.3 % (0.0-10.0); %Neutrophils 76.2 % (42.0-75.0); Hematocrit 37.3 % (42.0-52.0); Hemoglobin 12.1 g/dL (14.0-18.0); Mean Corpuscular HGB CONC 32.4 g/dL (32.0-36.0); Mean Corpuscular Hemoglobin 32.2 pg (27.0-31.0); Mean Corpuscular Volume 99.2 fl (78.0-98.0); Mean Platelet Volume 8.2 fL (7.4-10.4); Platelet Count 308 10x3/uL (130-400); RBC Distribution Width 14.7 % (11.5-14.5); Red Blood Cell (RBC) Count 3.76 mill/uL (4.70-6.10); White Blood Cell (WBC) Count 8.8 10x3/uL (4.8-10.8)
[2023-01-25 12:29] LABS: Anion Gap 12 mmol/L (10-20); BUN (Urea Nitrogen) 14 mg/dL (8.4-25.7); Calc. Creatinine Clearance 69 mL/min (70-130); Calcium 8.5 mg/dL (7.8-10.44); Carbon Dioxide 26 mmol/L (23-31); Chloride 101 mmol/L (98-107); Estimated GFR 89; Glucose 88 mg/dL (83-110); Potassium 4.3 mmol/L (3.5-5.1); Sodium 135 mmol/L (136-145)
[2023-01-25] MEDS ORDERED: Acetaminophen 500 MG TAB ONE (12:57)
[2023-01-25] MEDS ORDERED: Tamsulosin HCl 0.4 MG CAP ONE (12:58)
[2023-01-25] MEDS: Sodium Chloride 0.9% 1,000 ML IV SCH ×2 (12:59→20:47)
[2023-01-25] MEDS ORDERED: Hyoscyamine SL 0.125 MG TAB ONE (13:49)
[2023-01-25] MEDS ORDERED: traMADol HCl 50 MG TAB PO PRN (14:09)
[2023-01-25] MEDS ORDERED: Acetaminophen 325 MG TAB PO PRN (20:09)
[2023-01-25] MEDS: Famotidine/PF 20 mg/2ml Vial SLOW IVP SCH (20:46)
[2023-01-25] MEDS: Docusate 100 MG CAP PO SCH (20:46)
[2023-01-25] MEDS: Trospium 20 MG TAB PO SCH (20:46)
[2023-01-25] MEDS ORDERED: Zolpidem Tartrate 5 MG TAB PO SCH (21:00)
[2023-01-25] MEDS: Calcium Carbonate 500 MG ChewTAB PO PRN (23:20)
[2023-01-26] MEDS: Sodium Chloride 0.9% 1,000 ML IV SCH ×2 (05:45→12:10)
[2023-01-26] MEDS ORDERED: cefTRIAXone\\ROCEPHIN 1 GM in Sodium Chloride 0.9% 100 ML IVPB SCH (06:00)
[2023-01-26 06:03] LABS: #Basophils 0.1 thou/uL (0.0-0.2); #Eosinphils 0.1 thou/uL (0.0-0.7); #Monocytes 1.2 thou/uL (0.11-0.59); %Basophils 0.4 % (0.0-1.0); %Eosinophils 0.7 % (0.0-10.0); %Lymphocytes 12.2 % (21.0-51.0); %Monocytes 9.8 % (0.0-10.0); %Neutrophils 76.6 % (42.0-75.0); Hematocrit 36.6 % (42.0-52.0); Hemoglobin 11.9 g/dL (14.0-18.0); Mean Corpuscular HGB CONC 32.5 g/dL (32.0-36.0); Mean Corpuscular Hemoglobin 31.8 pg (27.0-31.0); Mean Corpuscular Volume 97.9 fl (78.0-98.0); Mean Platelet Volume 8.5 fL (7.4-10.4); Platelet Count 316 10x3/uL (130-400); RBC Distribution Width 14.8 % (11.5-14.5); Red Blood Cell (RBC) Count 3.74 mill/uL (4.70-6.10); White Blood Cell (WBC) Count 11.8 10x3/uL (4.8-10.8)
[2023-01-26 06:27] LABS: Anion Gap 14 mmol/L (10-20); BUN (Urea Nitrogen) 12 mg/dL (8.4-25.7); Calc. Creatinine Clearance 68 mL/min (70-130); Calcium 8.3 mg/dL (7.8-10.44); Carbon Dioxide 24 mmol/L (23-31); Chloride 102 mmol/L (98-107); Estimated GFR 88; Glucose 78 mg/dL (83-110); Potassium 4.4 mmol/L (3.5-5.1); Sodium 136 mmol/L (136-145)
[2023-01-26] MEDS: Calcium Carbonate 500 MG ChewTAB PO PRN (08:26)
[2023-01-26] MEDS: Trospium 20 MG TAB PO SCH (08:27)
[2023-01-26] MEDS: Docusate 100 MG CAP PO SCH (08:28)
[2023-01-26] MEDS: Famotidine/PF 20 mg/2ml Vial SLOW IVP SCH (08:28)
[2023-01-26 08:56] VITALS: BP 168/94; TEMP 98.2
[2023-01-26] MEDS ORDERED: Tamsulosin HCl 0.4 MG CAP PO SCH ×2 (09:00)
[2023-01-28] MEDS ORDERED: FLU VACC QS2023(65UP)/MF59C/PF 60 MCG/0.5 ML SYRINGE IM ONE (09:00)
== END 2023-01-26 15:15 | disposition home or self-care (01) ==
LOC: SDC 06:23 → SURG A 12:35
PROVIDERS: ADMIT Urology; ATTEND Urology
PROC: 0TBB8ZZ Excision of Bladder, Via Natural or Artificial Opening Endoscopic (ICD-10-PCS; principal; 2023-01-25)
PROC: 3E0K805 Introduction of Other Antineoplastic into Genitourinary Tract, Via Natural or Artificial Opening Endoscopic (ICD-10-PCS; 2023-01-25)
DX: C67.0 Malignant neoplasm of trigone of bladder (principal); N40.1 Benign prostatic hyperplasia with lower urinary tract symptoms; R35.0 Frequency of micturition; N35.811 Other urethral stricture, male, meatal; N20.0 Calculus of kidney; N28.1 Cyst of kidney, acquired; Q55.8 Other specified congenital malformations of male genital organs; R31.0 Gross hematuria; M10.9 Gout, unspecified; J44.9 Chronic obstructive pulmonary disease, unspecified; F17.210 Nicotine dependence, cigarettes, uncomplicated; Z90.49 Acquired absence of other specified parts of digestive tract; Z79.899 Other long term (current) drug therapy
CPT/HCPCS: 51720; 52235; 74178; 74420; 76770; 80048 ×2; 85025 ×2; 86850; 86900; 86901; J3010; J9280; 36415; 88307; J0696; J1956; J2405; J2704; J3490; J7050; Q9967; S0028

== ENCOUNTER 2023-02-10 09:39 | Outpatient (CLI) | payer MEDICARE ==
[2023-02-10] MEDS ORDERED: Iopamidol 370 76% 100 ML VIAL ONE (12:59)
== END 2023-02-10 09:40 | disposition home or self-care (01) ==
LOC: CT 09:39
PROVIDERS: ATTEND Urology
DX: C67.9 Malignant neoplasm of bladder, unspecified (principal); K44.9 Diaphragmatic hernia without obstruction or gangrene; K22.89 Other specified disease of esophagus; J43.9 Emphysema, unspecified; J98.4 Other disorders of lung; J47.9 Bronchiectasis, uncomplicated
CPT/HCPCS: 71260; 78306; A9503; Q9967

== ENCOUNTER 2024-01-08 08:59 | Outpatient (CLI) | payer MEDICARE ==
[2024-01-08] MEDS ORDERED: Iopamidol 370 76% 100 ML VIAL ONE (09:47)
== END 2024-01-08 09:00 | disposition home or self-care (01) ==
LOC: CT 08:59
PROVIDERS: ATTEND Radiology Radiation Oncology
DX: C67.9 Malignant neoplasm of bladder, unspecified (principal); K22.89 Other specified disease of esophagus; S22.069A Unspecified fracture of T7-T8 vertebra, initial encounter for closed fracture; Z92.21 Personal history of antineoplastic chemotherapy
CPT/HCPCS: 36415; 71270; 74178; 82565 ×2; J1642; 80053; 82728; 83540; 83550; Q9967